=== PATIENT | male | born 1980 | race Caucasian/White ===

== ENCOUNTER 2020-07-11 09:49 | Observation (INO) ==
[2020-07-11] MEDS ORDERED: 0.9 % Sodium Chloride 1,000 ML IVC ONE (10:11)
[2020-07-11] MEDS ORDERED: Ketorolac 30 MG/ML VIAL IVP ONE (10:11)
[2020-07-11] MEDS ORDERED: Isovue-370 500 ML BOTTLE IVP ONE (10:11)
[2020-07-11] MEDS ORDERED: Ondansetron 4 MG/2 ML VIAL IVP ONE (10:11)
[2020-07-11 10:22] LABS: Hematocrit 41.6 % (37.5-50.1); Hemoglobin 15.1 g/dL (12.9-16.9); Mean Corpuscular HGB Conc 36.3 g/dL (31.6-35.5); Mean Corpuscular Hemoglobin 32.8 pg (28.0-33.3); Mean Corpuscular Volume 90.2 fL (83.0-100.0); Mean Platelet Volume 9.9 fL (9.4-12.4); Platelet Count 178 K/mcL (140-400); Red Blood Count 4.61 M/mcL (4.19-5.50); Red Cell Distribution Width 12.2 % (11.5-14.5); White Blood Count 6.1 K/mcL (4.3-11.1)
[2020-07-11 10:39] LABS: Prothrombin Time 11.1 Seconds (9.4-12.1)
[2020-07-11 10:42] LABS: BUN/Creatinine Ratio 20 (6-26); Blood Urea Nitrogen 20 mg/dL (6-20); Calcium 9.7 mg/dL (8.6-10.3); Carbon Dioxide 27 mEq/L (23-29); Chloride 99 mEq/L (98-107); Glucose 151 mg/dL (70-105); Osmolality,Calculated 288 (280-300); Sodium 136 mEq/L (136-145); Troponin I < 0.03 ng/mL (< 0.04); eGFR For African Americans > 60 (> 60); eGFR For Non-African Americans > 60 (> 60)
[2020-07-11 10:43] LABS: Alanine Aminotransferase 62 Units/L (7-52); Albumin 4.3 g/dL (3.5-5.7); Alkaline Phosphatase 80 Units/L (34-104); Aspartate Amino Transferase 30 Units/L (13-39); Bilirubin,Direct 0.1 mg/dL (0.0-0.2); Bilirubin,Indirect 0.3 mg/dL (0.0-1.0); Bilirubin,Total 0.4 mg/dL (0.3-1.0); Globulin 2.2 g/dL (2.4-3.5); Lipase 20 Units/L (11-82); Total Protein 6.5 g/dL (6.4-8.9)
[2020-07-11] MEDS ORDERED: Ondansetron 4 MG/2 ML VIAL IVP PRN (13:28)
[2020-07-11] MEDS ORDERED: Acetaminophen 325 MG TABLET PO PRN (13:28)
[2020-07-11] MEDS ORDERED: Naloxone 0.4 MG/ML INJ IVP PRN ×2 (13:28→14:23)
[2020-07-11] MEDS ORDERED: Perflutren Lipid Microsphere 1.3 ML in 0.9 % Sodium Chloride 8.7 ML IVP PRN (13:34)
[2020-07-11] MEDS ORDERED: Ibuprofen 800 MG TABLET PO PRN (16:50)
[2020-07-11] MEDS: *HR* Heparin 5,000 UNIT/ML VIAL SQ SCH (17:25)
[2020-07-11] MEDS: Nicotine 21 MG PATCH.TD24 TD SCH (17:25)
[2020-07-11] MEDS: 0.9 % Sodium Chloride 1,000 ML IVC SCH (17:25)
[2020-07-11 19:32] LABS: Chol/HDL Ratio 8.2 (0-4.9); Cholesterol 246 mg/dL (< 200); HDL Cholesterol 30 mg/dL (40-59); Triglycerides 515 mg/dL (< 150)
[2020-07-12] MEDS: 0.9 % Sodium Chloride 1,000 ML IVC SCH (01:29)
[2020-07-12 05:41] LABS: Basophils % 0.8 %; Eosinophils # 0.1 K/mcL (0.0-0.6); Eosinophils % 1.9 %; Hematocrit 40.5 % (37.5-50.1); Hemoglobin 14.1 g/dL (12.9-16.9); Immature Granulocytes % 0.6 % (0-4); Lymphocytes # 1.8 K/mcL (0.6-4.6); Lymphocytes % 33.8 %; Mean Corpuscular HGB Conc 34.8 g/dL (31.6-35.5); Monocytes # 0.4 K/mcL (0.0-1.3); Monocytes % 7.6 %; Neutrophils # 2.9 K/mcL (1.6-8.9); Platelet Count 144 K/mcL (140-400); Red Cell Distribution Width 12.7 % (11.5-14.5); Segmented Neutrophils % 55.3 %; White Blood Count 5.3 K/mcL (4.3-11.1)
[2020-07-12] MEDS: *HR* Heparin 5,000 UNIT/ML VIAL SQ SCH (05:58)
[2020-07-12 05:59] LABS: Alanine Aminotransferase 58 Units/L (7-52); Albumin 3.9 g/dL (3.5-5.7); Alkaline Phosphatase 74 Units/L (34-104); Aspartate Amino Transferase 28 Units/L (13-39); BUN/Creatinine Ratio 13 (6-26); Bilirubin,Total 0.3 mg/dL (0.3-1.0); Blood Urea Nitrogen 14 mg/dL (6-20); Calcium 8.8 mg/dL (8.6-10.3); Carbon Dioxide 30 mEq/L (23-29); Chloride 104 mEq/L (98-107); Glucose 109 mg/dL (70-105); Magnesium 2.1 mg/dL (1.6-2.6); Osmolality,Calculated 293 (280-300); Potassium 4.3 mEq/L (3.5-5.1); Sodium 141 mEq/L (136-145); Total Protein 5.9 g/dL (6.4-8.9); eGFR For African Americans > 60 (> 60); eGFR For Non-African Americans > 60 (> 60)
[2020-07-12] MEDS ORDERED: PARoxetine 20 MG TABLET PO SCH (09:00)
[2020-07-12] MEDS ORDERED: PARoxetine HCL 10 MG TABLET PO SCH (09:00)
[2020-07-12] MEDS: Nicotine 21 MG PATCH.TD24 TD SCH (09:24)
[2020-07-12 11:58] VITALS: BP 111/72
== END 2020-07-12 12:10 | disposition home or self-care (01) ==
LOC: INPPIK 09:49 → EMEROOPIK 09:49 → INPPIK 14:11
PROVIDERS: ADMIT Family Medicine; ATTEND Family Medicine